=== PATIENT | male | born 1970 | race Caucasian/White ===

== ENCOUNTER 2018-11-02 13:54 | Emergency (ER) | payer MEDICAID ==
[~2018-11-02] VITALS: Ht 165.1 cm; Wt 72.6 kg
[2018-11-02 14:25] VITALS: Ht 165.1 cm; Wt 72.6 kg
[2018-11-02 17:54] VITALS: BP 113/69
== END 2018-11-02 17:54 | disposition home or self-care (01) ==
LOC: ED 13:54
DX: M25.512 Pain in left shoulder (principal); E11.9 Type 2 diabetes mellitus without complications; I10 Essential (primary) hypertension; Z86.73 Personal history of transient ischemic attack (TIA), and cerebral infarction without residual deficits
CPT/HCPCS: J1885